=== PATIENT | female | born 1955 | race African-American/Black ===

== ENCOUNTER 2023-01-12 05:33 | Day surgery (SDC) | payer OTHER ==
[2023-01-06 16:26] VITALS: BMI 37.1
[2023-01-12 08:26] VITALS: TEMP 98.1
[2023-01-12 09:07] VITALS: BP 140/69; PULSE 61; RESP 11
== END 2023-01-12 09:30 | disposition home or self-care (01) ==
LOC: JASU-ENDO 05:33
PROVIDERS: ATTEND Internal Medicine Gastroenterology
PROC: 0DBN8ZX Excision of Sigmoid Colon, Via Natural or Artificial Opening Endoscopic, Diagnostic (ICD-10-PCS; principal; 2023-01-12 08:00)
DX: Z12.11 Encounter for screening for malignant neoplasm of colon (principal); K63.5 Polyp of colon; K64.8 Other hemorrhoids
CPT/HCPCS: 88305-TC